=== PATIENT | female | born 1990 | race Caucasian/White ===

== ENCOUNTER 2017-05-23 20:14 | Outpatient (CLI) ==
[2016-12-22 18:20] VITALS: BMI 31.6
== END 2017-05-23 20:15 | disposition home or self-care (01) ==
LOC: AMBL 20:14
PROVIDERS: ATTEND Internal Medicine Geriatric Medicine
DX: R51 Headache (principal); Z33.1 Pregnant state, incidental

== ENCOUNTER 2017-09-25 21:49 | Emergency (ER) ==
[2017-09-25] MEDS ORDERED: TORADOL IM STA (22:00)
[2017-09-25] MEDS ORDERED: ZOFRAN 4 MG/2 ML IM STA (22:00)
[2017-09-25] MEDS ORDERED: MORPHINE 4 MG/ML SYRINGE IM STA (22:00)
--- NOTE | 2017-09-25 22:04 | ED.PDOC ---
General ED Provider: Dr. KAYLIN DARDEN-ER Chief Complaint: Tooth Problem Stated Complaint: my tooth hurts Time Seen by Physician: 22:02 Mode of Arrival: Walk-In Information Source: Patient Exam Limitations: No limitations Nursing and Triage Documentation Reviewed and Agree: Yes Does patient meet sepsis criteria?: No System Inflammatory Response Syndrome: Not Applicable Sepsis Protocol: For patient's 13 years and over: Temp is 96.8 and below OR 101 and greater Pulse >90 BPM Resp >20/minute Acutely Altered Mental Status Are patient's symptoms suggestive of a new infection, such as: -Pneumonia -Skin, Soft Tissue -Endocarditis -UTI -Bone, Joint Infection -Implantable Device -Acute Abdominal Infection -Wound Infection -Meningitis -Blood Stream Catheter Infection -Unknown EENT Complaint Exam - Dental/Oral Complaint/Exam Mechanism of Injury: No known trauma Onset/Duration: 3 days Symptoms Are: Still present Timing: Constant Initial Severity: Mild Current Severity: Moderate Location: right lower premolar Character: Reports: Dull, Aching, Throbbing Aggravating: Reports: None Associated Signs and Symptoms: Reports: Swelling Related History: Reports: Similar episode, Previous tooth problem Dental/Oral Surgical History: Reports: None Tooth Findings: Present: Gross decay, Gross caries Cervical Lymphadenopathy Present: No Facial Swelling Present: No Bleeding Present: No Oropharynx Findings: Absent: Clots, Active bleeding Review of Systems - Review Of Systems Constitutional: Reports: No symptoms Eyes: Reports: No symptoms Ears, Nose, Mouth, Throat: Reports: Mouth pain, Throat swelling Respiratory: Reports: No symptoms Cardiac: Reports: No symptoms GI: Reports: No symptoms : Reports: No symptoms Musculoskeletal: Reports: No symptoms Skin: Reports: No symptoms Neurological: Reports: No symptoms Endocrine: Reports: No symptoms Hematologic/Lymphatic: Reports: No symptoms All Other Systems: Reviewed and Negative Past Medical History - Past Medical History Previously Healthy: Yes Endocrine: Reports: None Cardiovascular: Reports: None Respiratory: Reports: None Hematological: Reports: None Gastrointestinal: Reports: None Genitourinary: Reports: None Neuro/Psych: Reports: None Musculoskeletal: Reports: None Cancer: Reports: None Last Menstrual Period: 2 WEEKS AGO - Surgical History General Surgical History: Reports: None - Family History Family History: Reports: None - Social History Smoking Status: Current every day smoker, Heavy tobacco smoker Hx Substance Use: No Alcohol Screening: None - Immunizations Tetanus Shot up to Date: Yes Physical Exam - Physical Exam Appearance: Well-appearing, No pain distress, Well-nourished Pain Distress: Moderate Eyes: ROBERT, EOMI, Conjunctiva clear ENT: Ears normal, Nose normal Neck: Supple Respiratory: Airway patent, Breath sounds clear, Breath sounds equal, Respirations nonlabored Cardiovascular: RRR GI/: Soft, Nontender, No masses, Bowel sounds normal, No Organomegaly Musculoskeletal: Normal strength, ROM intact, No edema, No calf tenderness Skin: Warm Neurological: Sensation intact Psychiatric: Affect appropriate, Mood appropriate Critical Care Note - Critical Care Note Total Time (mins): 0 Course - Course Orders, Labs, Meds: Orders Category Date Time Status Ketorolac Tromethamine [Toradol] MEDS 09/25/17 22:00 Discontinued 60 mg IM ONCE STA Morphine Sulfate [Morphine 4 mg/ml Syringe] MEDS 09/25/17 22:00 Discontinued 4 mg IM ONCE STA Ondansetron HCl/Pf [Zofran 4 mg/2 ml] MEDS 09/25/17 22:00 Discontinued 4 mg IM ONCE STA Medications Discontinued Medications Generic Name Dose Route Start Last Admin Trade Name Freq PRN Reason Stop Dose Admin Ketorolac Tromethamine 60 mg 09/25/17 22:00 Toradol IM 09/25/17 22:01 ONCE STA Morphine Sulfate 4 mg 09/25/17 22:00 Morphine 4 Mg/Ml Syringe IM 09/25/17 22:01 ONCE STA Ondansetron HCl 4 mg 09/25/17 22:00 Zofran 4 Mg/2 Ml IM 09/25/17 22:01 ONCE STA Vital Signs: Temp Pulse Resp BP Pulse Ox 09/25/17 21:50 98.7 F 89 20 129/87 98 Departure - Departure Time of Disposition: 22:03 Disposition: HOME SELF-CARE Discharge Problem: Toothache Instructions: Toothache (ED) Condition: Good Pt referred to PMD for follow-up: No IPMP verified?: No Additional Instructions: augmentin 875mg bid x 7 days--norco 5mg q 6hs prn pain #10/f/u dentist hillary Allergies/Adverse Reactions: Allergies Latex, Natural Rubber Adverse Reaction (Verified 09/25/17 21:56) Home Medications: Ambulatory Orders Norethindrone-E.estradiol-Iron [Junel Fe 24 Tablet] 1 tab PO DAILY 09/25/17 Disposition Discussed With: Patient, Family
[2017-09-25 22:09] VITALS: BP 129/87; TEMP 98.7; BMI 32.0
== END 2017-09-25 22:25 | disposition home or self-care (01) ==
LOC: ED 21:49
DX: K08.89 Other specified disorders of teeth and supporting structures (principal); K02.7 Dental root caries; F17.210 Nicotine dependence, cigarettes, uncomplicated
CPT/HCPCS: 96372; 99282